=== PATIENT | male | born 1995 | race African-American/Black ===

== ENCOUNTER 2021-02-10 07:05 | Emergency (ER) | payer OTHER ==
[~2021-02-10] VITALS: Ht 175.3 cm; Wt 59.0 kg
[2021-02-10 07:39] VITALS: BP 117/56
== END 2021-02-10 08:22 | disposition home or self-care (01) ==
LOC: ER 07:05
DX: E11.9 Type 2 diabetes mellitus without complications (principal); Z76.0 Encounter for issue of repeat prescription
CPT/HCPCS: 82962